=== PATIENT | female | born 1965 | race Caucasian/White ===

== ENCOUNTER → 2016-12-10 | Outpatient (CLI) | payer OTHER ==
[~2016-12-10] MED LIST: ATEN50TA41 PO; ESOM40CA PO; HYDR25TA6 PO; LEVO25TA2 PO; POTA10TA11 PO
== END | disposition home or self-care (01) ==
LOC: CFH 10:26
PROVIDERS: ATTEND Nurse Practitioner Family
DX: Z12.31 Encounter for screening mammogram for malignant neoplasm of breast (principal)
CPT/HCPCS: 76377; 76642; G0202

== ENCOUNTER → 2018-06-09 | Outpatient (CLI) | payer OTHER | END | disposition home or self-care (01) | LOC: CFH 08:21 | PROVIDERS: ATTEND Nurse Practitioner Family | DX: J32.9 Chronic sinusitis, unspecified (principal); R09.82 Postnasal drip; R51 Headache | CPT/HCPCS: 70486 ==

== ENCOUNTER → 2018-09-23 | Outpatient (CLI) | payer OTHER | END | disposition home or self-care (01) | LOC: CFH 12:03 | PROVIDERS: ATTEND Nurse Practitioner Family | DX: Z12.31 Encounter for screening mammogram for malignant neoplasm of breast (principal) | CPT/HCPCS: 76641; 77063; 77067 ==

== ENCOUNTER 2018-09-25 14:45 | Outpatient (CLI) | payer OTHER | END 2018-09-25 23:59 | disposition home or self-care (01) | LOC: RAD 14:45 | PROVIDERS: ATTEND Specialist | DX: J32.9 Chronic sinusitis, unspecified (principal) | CPT/HCPCS: 76380 ==

== ENCOUNTER 2018-09-29 10:27 | Day surgery (SDC) | payer OTHER ==
[~2018-09-29] VITALS: Ht 165.1 cm; Wt 99.6 kg
[2018-09-29 11:05] VITALS: BP 159/92
[2018-09-29] MEDS ORDERED: MUPIROCIN OINT 2%, 22GM ONE (11:07)
[2018-09-29] MEDS ORDERED: BUPIVACAINE/EPI 0.5% 1:200K ONE (11:09)
[2018-09-29] MEDS ORDERED: COCAINE TOPICAL SOLN 4%, 4ML ONE (11:09)
[2018-09-29] MEDS ORDERED: EPINEPHRINE TOPICAL SOLN 1 MG/ML, 30ML ONE (11:09)
[2018-09-29] MEDS ORDERED: THROMBIN 20,000 UNIT VIAL TP ONE (11:09)
[2018-09-29] MEDS ORDERED: LIDOCAINE 1%-EPI 1:100K, 30ML ONE (11:10)
[2018-09-29] MEDS ORDERED: EPINEPHRINE 1 MG/ML, 1ML ONE (11:10)
[2018-09-29] MEDS ORDERED: FLUO20CA19 PO (11:19)
[2018-09-29] MEDS ORDERED: LOSA25TA25 PO (11:19)
[2018-09-29] MEDS ORDERED: ESTR1.25 PO (11:19)
[2018-09-29] MEDS ORDERED: GABA300C10 PO (11:19)
[2018-09-29] MEDS: LACTATED RINGERS 1,000 ML IV SCH ×2 (11:54→11:55)
[2018-09-29] MEDS ORDERED: BACITRACIN 50,000 UNIT ONE (12:02)
[2018-09-29] MEDS ORDERED: MIDAZOLAM 1 MG/ML, 2ML ONE (12:29)
[2018-09-29] MEDS ORDERED: FENTANYL PF 250 MCG/5ML ONE (12:29)
[2018-09-29] MEDS ORDERED: SUCCINYLCHOLINE 20 MG/ML, 10ML ONE (12:30)
[2018-09-29] MEDS ORDERED: ROCURONIUM 10MG/ML,5ML ONE (12:30)
[2018-09-29] MEDS ORDERED: LIDOCAINE 2%, 6 ML JEL.PF.APP MM ONE (12:32)
[2018-09-29] MEDS ORDERED: PROPOFOL 10 MG/ML, 20ML ONE (12:35)
[2018-09-29] MEDS ORDERED: GLYCOPYRROLATE 0.2MG/1ML, 5ML ONE (12:35)
[2018-09-29] MEDS ORDERED: EPHEDRINE 50 MG/ML, 1ML ONE (12:44)
[2018-09-29] MEDS ORDERED: DEXAMETHASONE 4 MG/ML, 1ML ONE ×2 (12:44→12:45)
[2018-09-29] MEDS ORDERED: ONDANSETRON 2MG/ML, 2ML ONE ×2 (12:45)
[2018-09-29] MEDS ORDERED: OXYMETAZOLINE NASAL SPRAY 0.05%, 15ML ONE (12:52)
[2018-09-29] MEDS ORDERED: ONDANSETRON 2MG/ML, 2ML IV PRN (13:00)
[2018-09-29] MEDS ORDERED: HALOPERIDOL 5 MG/ML IV PRN (13:00)
[2018-09-29] MEDS ORDERED: HYDROmorphone 2 MG/ML, 1ML IVPush PRN (13:00)
[2018-09-29] MEDS ORDERED: FENTANYL PF 100 MCG/2ML IV PRN (13:00)
[2018-09-29] MEDS ORDERED: DIAZEPAM 5 MG/ML, 2ML IVPush PRN (13:00)
[2018-09-29] MEDS ORDERED: MIDAZOLAM 1 MG/ML, 2ML IV PRN (13:00)
[2018-09-29] MEDS ORDERED: MORPHINE SULFATE 4 MG/ML, 1ML IVPush PRN (13:00)
[2018-09-29] MEDS ORDERED: hydrALAzine 20 MG/ML, 1ML IV PRN (13:00)
[2018-09-29] MEDS ORDERED: ONDANSETRON ODT 8 MG PO PRN (13:00)
[2018-09-29] MEDS ORDERED: MEPERIDINE/PF 25MG/0.5ML IVPush PRN (13:00)
[2018-09-29] MEDS ORDERED: EPHEDRINE 50 MG/ML, 1ML IVPush PRN (13:00)
[2018-09-29] MEDS ORDERED: LABETALOL 5MG/ML, 20ML IV PRN (13:00)
[2018-09-29] MEDS ORDERED: ALBUTEROL SULFATE 2.5 MG/3 ML NPPB PRN (13:00)
[2018-09-29] MEDS ORDERED: OXYcodone 5 MG/5 ML ORAL.SOL UDC PO PRN (13:00)
[2018-09-29] MEDS ORDERED: PROMETHAZINE 25 MG/ML, 1ML IV PRN (13:00)
[2018-09-29] MEDS ORDERED: PROMETHAZINE 12.5 MG SUPP PR PRN (13:00)
[2018-09-29] MEDS ORDERED: ACETAMINOPHEN 325 MG TABLET PO PRN (13:00)
== END 2018-09-29 16:35 | disposition home or self-care (01) ==
LOC: OUT 10:27 → EDSTATUS 12:15 → OUT 16:35
PROVIDERS: ATTEND Specialist
DX: J32.0 Chronic maxillary sinusitis (principal); J32.2 Chronic ethmoidal sinusitis; I10 Essential (primary) hypertension; E03.9 Hypothyroidism, unspecified; E78.00 Pure hypercholesterolemia, unspecified; Z90.710 Acquired absence of both cervix and uterus; Z72.89 Other problems related to lifestyle; Z88.1 Allergy status to other antibiotic agents; Z88.5 Allergy status to narcotic agent; Z88.8 Allergy status to other drugs, medicaments and biological substances; Z91.040 Latex allergy status
CPT/HCPCS: 31255; 31267; 87070; 87075; 87205; 88305; 88311; J0171; J0330; J1100; J2250; J2405; J2704; J3010; J3490; J7120

== ENCOUNTER → 2019-12-03 | Outpatient (CLI) | payer OTHER ==
[~2019-12-03] MED LIST changes: +ESTR1.25 PO; +FLUO20CA19 PO; +GABA300C10 PO; +LOSA25TA25 PO
== END | disposition home or self-care (01) ==
LOC: CFH 07:35
PROVIDERS: ATTEND Nurse Practitioner Family
DX: Z12.31 Encounter for screening mammogram for malignant neoplasm of breast (principal); Z13.820 Encounter for screening for osteoporosis; Z79.890 Hormone replacement therapy; Z78.0 Asymptomatic menopausal state
CPT/HCPCS: 76641; 77063; 77067; 77080

== ENCOUNTER → 2019-12-24 | Outpatient (CLI) | payer OTHER | END | disposition home or self-care (01) | LOC: CFH 12:09 | PROVIDERS: ATTEND Nurse Practitioner Family | DX: N63.11 Unspecified lump in the right breast, upper outer quadrant (principal) | CPT/HCPCS: 76642 ==

== ENCOUNTER 2020-04-20 13:00 | Outpatient (CLI) | payer OTHER | END 2020-04-20 23:59 | disposition home or self-care (01) | LOC: CFH 13:00 | PROVIDERS: ATTEND Surgery | DX: Z02.9 Encounter for administrative examinations, unspecified (principal) ==